=== PATIENT | female | born 1975 | race Caucasian/White ===

== ENCOUNTER 2020-02-25 19:01 | Observation (INO) | payer BC ==
[2020-02-25] MEDS ORDERED: SODIUM CHLORIDE 0.9% 1,000 ML IV STA (19:20)
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
[2020-02-25 19:45] LABS: Appearance,Urine Clear (Clear); Basophils # (A) 0.1 k/uL (0-0.2); Basophils % (A) 2 %; Bilirubin,Urine Negative (Negative); Blood,Urine Negative (Negative); Color,Urine Light Yellow; Eosinophils # (A) 0.1 k/uL (0-0.7); Eosinophils % (A) 2 %; Glucose,Urine (UA) Negative (Negative); HCT 47.6 % (34.0-46.0); HGB 15.3 gm/dL (11.4-16.0); Ketones,Urine Negative (Negative); Leukocyte Esterase,Urine Negative (Negative); Lymphocytes % (A) 25 %; MCH 32.1 pg (25.0-35.0); MCHC 32.1 g/dL (31.0-37.0); MCV 99.9 fL (80.0-100.0); Mean Platelet Volume 7.8; Monocytes # (A) 0.7 k/uL (0-1.0); Monocytes % (A) 8 %; Neutrophils # (A) 5.1 k/uL (1.3-7.7); Neutrophils % (A) 62 %; Nitrite,Urine Negative (Negative); Platelet Count 226 k/uL (150-450); Protein,Urine Negative (Negative); RBC 4.77 m/uL (3.80-5.40); RDW 12.5 % (11.5-15.5); Specific Gravity,Urine 1.008 (1.001-1.035); Urobilinogen,Urine <2.0 mg/dL (<2.0); WBC 8.2 k/uL (3.8-10.6)
[2020-02-25 20:01] LABS: ALT <6 U/L (4-34); AST 22 U/L (14-36); Acetaminophen <10.0 ug/mL; African American GFR (CKD) >90 (>60 ml/min/1.73 sqM); Albumin 4.2 g/dL (3.5-5.0); Alcohol <10 mg/dL; Alkaline Phosphatase 67 U/L (38-126); Anion Gap 6 mmol/L; Blood Urea Nitrogen 6 mg/dL (7-17); Calcium 9.3 mg/dL (8.4-10.2); Carbon Dioxide 26 mmol/L (22-30); Chloride 107 mmol/L (98-107); Glucose 86 mg/dL (74-99); Non-African American GFR(CKD) >90 (>60 ml/min/1.73 sqM); Potassium 4.4 mmol/L (3.5-5.1); Salicylate <1.0 mg/dL; Sodium 139 mmol/L (137-145); Total Bilirubin 0.5 mg/dL (0.2-1.3)
[2020-02-25 20:14] LABS: Amphetamine Screen,Urine Not Detected (NotDetected); Barbiturate Screen,Urine Not Detected (NotDetected); Benzodiazepines Screen,Urine Detected (NotDetected); Cocaine Screen,Urine Not Detected (NotDetected); Methadone Screen, Urine Not Detected (NotDetected); Opiate Screen,Urine Not Detected (NotDetected); Oxycodone Screen, Urine Not Detected (NotDetected); Phencyclidine Screen,Urine Not Detected (NotDetected); Tricyclic Antidepressant,Urine Not Detected (NotDetected); Urn Cannabinoid Scrn Detected (NotDetected)
[2020-02-25 20:28] LABS: VBG PH 7.36 (7.31-7.41)
[2020-02-25] MEDS ORDERED: ONDANSETRON 4 MG/2 ML VIAL IVP PRN (20:55)
[2020-02-25] MEDS ORDERED: NALOXONE 0.4 MG/ML 1 ML VIAL IV PRN (20:55)
[2020-02-25] MEDS ORDERED: ACETAMINOPHEN TAB 325 MG TAB PO PRN (20:55)
[2020-02-25] MEDS: SODIUM CHLORIDE 0.9% 1,000 ML IV SCH (21:26)
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
[2020-02-25] MEDS ORDERED: HALOPERIDOL LACTATE 5 MG/ML 1 ML VIAL IM PRN (22:07)
[2020-02-25] MEDS ORDERED: LORazepam 2 MG/ML INJ IV PRN (22:07)
[2020-02-26] MEDS ORDERED: HALOPERIDOL LACTATE 5 MG/ML 1 ML VIAL IM STA (00:05)
[2020-02-26] MEDS ORDERED: HALOPERIDOL LACTATE 5 MG/ML 1 ML VIAL IM PRN (00:06)
--- NOTE | 2020-02-26 00:08 | P.MHFACE ---
Face to Face Restrain/Seclus - Evaluation Patient's Immediate Situation: Endangers self safety, Endangers staff safety Patient's Reaction to the Intervention: Appropriate, Calm Patient's Medical & Behavioral Condition: Awake, Alert Need to Continue or Terminate Restraint or Seclusion: Continue Need to Continue or Terminate Restraint/Seclusion - Comment: The patient was noted to be very hostile towards staff. She was attempting to get out of the bed leave the hospital. She also threatened to hurt the staff if they got in her way. The patient was seen at the bedside. Informed the patient regarding the need for 2-point restraints for her safety. Continue with 2 point restraints for now.
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
[2020-02-26 04:43] VITALS: TEMP 98.7
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
[2020-02-26 09:01] VITALS: RESP 18
[2020-02-26 14:02] VITALS: BMI 18.6
[2020-02-26 17:01] VITALS: BP 124/74; PULSE 80
[2020-02-26] MEDS: SODIUM CHLORIDE 0.9% 1,000 ML IV SCH (17:40)
== END 2020-02-26 18:44 ==
LOC: EC 19:01 → 3SCARD 20:54
PROVIDERS: ADMIT Internal Medicine; ATTEND Internal Medicine
DX: T42.4X2A Poisoning by benzodiazepines, intentional self-harm, initial encounter (principal); F32.9 Major depressive disorder, single episode, unspecified; F41.9 Anxiety disorder, unspecified; Z78.1 Physical restraint status; Z72.0 Tobacco use; R53.83 Other fatigue; R45.1 Restlessness and agitation
CPT/HCPCS: 96372 ×2; 82075; 96360; 96361; 99285; 36415; 93005; 80053; 82803; 83735; 85025; 81003; 81025; 80306; 83520; 80329; 80320; G0378 ×2; J1630 ×2

== ENCOUNTER 2020-02-26 18:38 | Inpatient (IN) | payer BC ==
[2020-02-26] MEDS ORDERED: MAGNESIUM HYDROXIDE 2,400 MG/10 ML CUP PO PRN (18:58)
[2020-02-26] MEDS ORDERED: ACETAMINOPHEN TAB 325 MG TAB PO PRN (18:58)
[2020-02-26] MEDS ORDERED: LORazepam 0.5 MG TAB PO PRN (18:58)
[2020-02-26] MEDS ORDERED: ZIPRASIDONE 20 MG VIAL IM PRN (18:58)
[2020-02-26] MEDS ORDERED: MAG HYDROX/AL HYDROX/SIMETH 30 ML CUP PO PRN (18:58)
--- NOTE | 2020-02-27 04:35 | P.CONS ---
History of Present Illness - Reason for Consult Consult date: 02/27/20 - History of Present Illness Patient is a 45-year-old female with a PMH of tobacco abuse and depression was brought into the emergency room for attended suicide with Xanax. The patient was initially admitted to the medicine unit from where she was discharged on 02/25 and transferred to the mental health unit where she was seen and evaluated. The patient reported feeling well and notes that she is feeling back to her baseline. She denied any active complaints. Denied chest pain, shortness of breath, fever, chills, nausea, vomiting, abdominal pain, or diarrhea. Review of Systems Pertinent positives and negatives as discussed in HPI, a complete review of systems was performed and all other systems are negative. Past Medical History Past Medical History: Pneumonia Additional Past Medical History / Comment(s): PNEUMONIA 09/15/2013 TAKING RX SURGEON NOTIFIED PER PATIENT History of Any Multi-Drug Resistant Organisms: None Reported, MRSA Year Discovered:: Unknown MDRO Source:: Right knee Additional Past Surgical History / Comment(s): LAPAROSCOPIC Past Anesthesia/Blood Transfusion Reactions: No Reported Reaction Past Psychological History: Depression Smoking Status: Never smoker Past Alcohol Use History: Rare Past Drug Use History: None Reported - Past Family History Father Family Medical History: Cancer Medications and Allergies Allergies Allergy/AdvReac Type Severity Reaction Status Date / Time codeine Allergy Rash/Hives Verified 02/26/20 19:10 Physical Exam Vitals: Vital Signs Temp Pulse Resp BP 02/27/20 02:23 97.7 F 91 16 107/74 02/26/20 19:56 97.3 F L 81 20 124/89 Intake and Output 02/26/20 02/26/20 02/27/20 14:59 22:59 06:59 Other: Weight 51.965 kg General: non toxic, no distress, appears at stated age, normal weight Derm: no unusual rashes/lesions no unusual ecchymoses, warm, dry Head: atraumatic, normocephalic, symmetric Eyes: EOMI, no lid lag, anicteric sclera, pupils equal round reactive to light ENT: Nose and ears atraumatic, no thrush, no pharyngeal erythema Neck: No thyromegaly, no cervical lymphadenopathy, trachea midline, supple Mouth: no lip lesion, mucus membranes moist Cardiovascular: S1S2 reg, no murmur, positive posterior tibial pulse bilateral, no edema, capillary refill less than 2 seconds Lungs: CTA bilateral, no rhonchi, no rales , no accessory muscle use Abdominal: soft, nontender to palpation, no guarding, no appreciable organomegaly, normal bowel sounds Ext: no gross muscle atrophy, muscle strength 5 out of 5 in all 4 extremities grossly, no contractures, Neuro: CN II-XI grossly intact, light touch intact all 4 extremities, finger to nose within normal limits, Psych: Alert, oriented, appropriate affect Results Labs: Abnormal Lab Results - Last 24 Hours (Table) 02/25/20 Range/Units 19:32 LDL Cholesterol, Calc 112 H (0-99) mg/dL Assessment and Plan Plan: Xanax overdose -Patient back to her baseline -Continue to monitor for signs of withdrawal Depression with suicide attempt -As per psychiatry Tobacco abuse -Advised on importance of cessation -Nicotine patch when necessary Thank you for allowing us to participate in the care of this patient. We will follow peripherally. Do not hesitate to contact us with questions. Someone can be reached from the [facility] hospitalist group at all hours of the day at [phone].
[2020-02-27 10:16] LABS: Hemoglobin A1C 5.5 % (4.0-6.0)
[2020-02-27] MEDS: VENLAFAXINE HCL ER 37.5 MG CAP PO SCH (11:48)
--- NOTE | 2020-02-27 12:43 | P.HP ---
Psychiatric H&P - . H&P Date: 02/27/20 History & Physical: Allergies Allergy/AdvReac Type Severity Reaction Status Date / Time codeine Allergy Rash/Hives Verified 02/26/20 19:10 Vital Signs Temp 97.7 F 02/27/20 02:23 Pulse 91 02/27/20 02:23 Resp 16 02/27/20 02:23 BP 107/74 02/27/20 02:23 Pulse Ox Intake & Output 02/26/20 02/27/20 02/27/20 18:59 06:59 18:59 Weight 52.163 kg 51.965 kg Laboratory Last Values Estimated Ave Glu mg/dL 111 02/25/20 19:32 Hemoglobin A1c 5.5 % (4.0-6.0) 02/25/20 19:32 Triglycerides 80 mg/dL (<150) 02/25/20 19:32 Cholesterol 183 mg/dL (<200) 02/25/20 19:32 LDL Cholesterol, Calc 112 mg/dL (0-99) H 02/25/20 19:32 HDL Cholesterol 55 mg/dL (40-60) 02/25/20 19:32 TSH 2.580 mIU/L (0.465-4.680) 02/25/20 19:32 02/27/20 11:51 IDENTIFYING DATA: Patient is a 45-year-old female who currently lives with her 2 sons and a friend in the house and works for the [employer] service. HPI: Patient presented to the hospital initially after a legitimate suicide attempt overdosing on Xanax and apparentlyhad a noose wrapped around her neck. Patient was admitted to the medical floors initially and was noted to be agitat ed, threatening staff and violent towards staff members requiring restraints. Patient was admitted to the mental health floor on a petition and certificate the petition was filled out by patient's ex- who claims that after receiving a call from the patient's son about the suicide attempt and the overdose. Patient was seentodayand agreeable to be interviewed by parts data writer. Patient appeared to have a soft tone and mentioned that she was feeling depressed and suffering from increase in her anxiety over the past several months. She states that she did attempt suicide and put the noose around her neck and er son called 911 to bring her into the hospital. She states that previous to this she was in a argument with her boyfriend ann claims that it was over him not letting her go to his son's dirt bike competition because his ex- was going to be there and patient did not like this and went home and states that she was crying and felt hopeless and that's when she took a Xanaxonce to try to sleep however names that it was not helping her anxiety and she then overdosed on the pills. She states that she does not know what happened afterwards. She claims that currently she feels "depressed and frustrated and is endorsing guilt towards her actions. She states that she is worried about her job and kids. She states that she has fair sleep and fair appetite. Patient denies any suicidal or homicidal ideations intent or plan. At this time patient denies any auditory or visual hallucinations. Patient denies any flight of ideas racing thoughts and increased in goal directed behavior. Patient admits to using cigarettes daily and claims that she eats THC edibles approximately 10 mg every 2-3 times a week PAST PSYCHIATRIC HISTORY: Patient states that she has a history of depression and anxiety. she claims that she was previously on Xanax, and Lexapro in the past. [Patient denies any previous psychiatric hospitalizations.] she states that she does not have a psychiatrist as an outpatient however does have a counselor who she sees through [facility]. she claims that she did have a suicide attempt when she was 21 years old attempting to overdose. PMH:[denies] ALLERGIES: [as per EMR] CHEMICAL DEPENDENCY HISTORY: [as per HPI] FAMILY PSYCHIATRIC/SUBSTANCE USE HISTORY: [denies] SOCIAL HISTORY: Patient was born and raised in [place] [facility] and claims that she completed high school she states that she is not any legal history. She currently lives with her 2 sons a friend and lives in a house and works for the [employer]. MENTAL STATUS EXAM: General Appearance: Patient appears to be stated age is thin, alert, tearful and attempts to cooperate. Patient appears to have poor hygiene and grooming. Behavior: Patient is seated without any agitated behavior. tearful at times Speech: Patient's speech is [fluent and nonpressured.] Mood/Affect: Patient reports their mood is depressed, affect is congruent Suicidality/Homicidality: Patient denies having any homicidal ideation intent or plan. [Denies any suicidal ideations intent or plan] Perceptions: Patient denies any visual hallucinations [and denies any auditory hallucinations] Though content/process: There is no evidence of any delusional thought content and thought process is linear and goal-directed. minimizing her symptoms and suicide attempt. Memory and concentration: AOX3, grossly intact for the purposes of this session. Can spell "WORLD" backwards Judgment and insight: [poor] STRENGTHS/WEAKNESSES: strength is that patient is [resilient]. Weakness is that patient [has poor judgment and is impulsive] INTELLECT: [average] IMPRESSIONS: major depressive disorder, without psychotic features Anxiety disorder unspecified Benzodiazepine abuse Nicotine dependence PLAN: -Patient is admitted under involuntary status to MHU for stabilization of psychiatric symptoms and safety. Patient has signed medication consent and is placed in patient's chart. A second certification was completed and along with petition will be filed for court. -Medications : Will start patient on Effexor 37.5 mg daily for mood/anxiety. Melatonin 5 mg daily at bedtime when necessary for insomnia. -Ativan and Geodon PRN for agitation/aggression -Patient was informed of the risks, benefits and side effects of the medication and patient verbally consented to taking the medications. Patient signed med consent form and was placed in chart. -Internal Medicine consult to perform medical evaluation and physical. -NRT - nicotine patch -SW on board for discharge planning. Encourage patient to participate in groups to work on coping skills. 02/27/20 12:35
[2020-02-27 15:56] VITALS: BMI 18.4
[2020-02-27] MEDS ORDERED: MELATONIN 5 MG TABLET PO PRN (21:00)
[2020-02-28] MEDS: VENLAFAXINE HCL ER 37.5 MG CAP PO SCH (08:04)
--- NOTE | 2020-02-28 10:25 | P.PN ---
Progress Note - Text Progress Note Date: 02/28/20 Interval History: Patient was seen sitting by the nurse's desk this morning and was directable and agreeable to speak with keno writer/runner in the office. Patient appeared mildly improved hygiene and grooming today. She appeared to be calmer with keno writer/runner. She states that she is feeling anxious on the unit around other patients however does state that her mood has been improving with the Effexor. Patient was agreeable to have the Effexor dose increased to 75 for tomorrow. She claims that she was ab le to speak to her boyfriend and her children over the phone yesterday and claims that she misses them. She states that 2 of them will come to visit her tonight for visiting hours. She states that she is attempting to work on her coping skills group. She claims that she was not able to sleep well last night due to her roommate being on a one-to-one and talking throughout the night. She states that she has a fair appetite. At this time patient denies any suicidal or homical ideations, intent or plan. Patient denies any auditory, visual hallucinations and denies any paranoia or delusions. Patient denies any side effects from the medications and has been compliant with meds. Mental Status Exam: General Appearance: Patient appears to be stated age is thin, alert, tearful and attempts to cooperate. Patient appears to have improving hygiene and grooming. Behavior: Patient is seated without any agitated behavior. Speech: Patient's speech is fluent and nonpressured. Mood/Affect: Patient reports their mood is depressed, affect is congruent Suicidality/Homicidality: Patient denies having any homicidal ideation intent or plan. Denies any suicidal ideations intent or plan Perceptions: Patient denies any visual hallucinations and denies any auditory hallucinations Though content/process: There is no evidence of any delusional thought content and thought process is linear and goal-directed. Focused on discharge. Memory and concentration: AOX3, grossly intact for the purposes of this session Judgment and insight: Improving mildly Assessment major depressive disorder, without psychotic features Anxiety disorder unspecified Benzodiazepine abuse Nicotine dependence Plan: -Patient continues to meet criteria for inpatient psychiatric admission for symptom stabilization and safety. We will await deferral date. -Medications: Increased Effexor XRT 75 mg daily for mood/anxiety. Continue with melatonin 5 mg daily at bedtime when necessary for insomnia. -When necessary Ativan and Geodon for agitation/aggression. -NRT - nicotine patch -SW on board for discharge planning. Encouraged the patient to participate in milieu. Encourage patient to work on her coping skills and distress tolerance. If patient does well overnight, we will likely plan for potential discharge tomorrow if patient defers court.
[2020-02-29 07:02] VITALS: BP 117/82; PULSE 93; RESP 14; TEMP 97.9
[2020-02-29] MEDS ORDERED: VENLAFAXINE HCL ER 75 MG CAP PO SCH (09:00)
--- NOTE | 2020-02-29 10:08 | P.DS ---
Providers Date of admission: 02/26/20 18:49 Expected date of discharge: 02/29/20 Attending physician: Burke Serrano MD Consults: 02/26/20 18:58 Consult Physician Routine Consulting Provider: Shun Chung Consult Reason/Comments: H&P and medical Do you want consulting provider notified?: Yes Primary care physician: Burke Serrano MD - Discharge Diagnosis(es) (1) Major depressive disorder without psychotic features Current Visit: Yes Status: Acute Priority: High (2) Anxiety disorder Current Visit: Yes Status: Acute Priority: Medium (3) Benzodiazepine abuse Current Visit: Yes Status: Acute Priority: Medium (4) Nicotine dependence Current Visit: Yes Status: Acute Priority: Low Hospital Course: Admission HPI: Patient is a 45-year-old female who currently lives with her 2 sons and a friend in the house and works for the [employer] service. Patient presented to the hospital initially after a legitimate suicide attempt overdosing on Xanax and apparentlyhad a noose wrapped around her neck. Patient was admitted to the medical floors initially and was noted to be agitated, threatening staff and violent towards staff members requiring restraints. Patient was admitted to the mental health floor on a petition and certificate the petition was filled out by patient's ex- who claims that after receiving a call from the patient's son about the suicide attempt and the overdose. Patient was seentodayand agreeable to be interviewed by administrative underwriter. Patient appeared to have a soft tone and mentioned that she was feeling depressed and suffering from increase in her anxiety over the past several months. She states that she did attempt suicide and put the noose around her neck and er son called 911 to bring her into the hospital. She states that previous to this she was in a argument with her boyfriend andshe claims that it was over him not letting her go to his son's dirt bike competition because his ex- was going to be there and patient did not like this and went home and states that she was crying and felt hopeless and that's when she took a Xanaxonce to try to sleep however names that it was not helping her anxiety and she then overdosed on the pills. She states that she does not know what happened afterwards. She claims that currently she feels "depressed and frustrated and is endorsing guilt towards her actions. She states that she is worried about her job and kids. She states that she has fair sleep and fair appetite. Patient denies any suicidal or homicidal ideations intent or plan. At this time patient denies any auditory or visual hallucinations. Patient denies any flight of ideas racing thoughts and increased in goal directed behavior. Patient admits to using cigarettes daily and claims that she eats THC edibles approximately 10 mg every 2-3 times a week Hospital course: Upon admission to the unit patient was initially depressed and anxious. Patient was however directable and agreeable to commence treatment. Patient got along well with other patients on the unit and followed unit protocol. Patient was compliant with the medications and denied any side effects throughout hospital course. Patient was started on Effexor and titrated up to dose of 75 mg daily for mood/anxiety. Also administrative underwriter spoke with patient about the side effects and dangers of abusing medication such as Xanax, patient verbally understood and agreed. Patient spoke of her stressors and engaged in therapy both group and individual. Patient was also seen by medical team for history and physical exam. Throughout the course of the hospitalization patient gradually improved with regards to mood, anxiety, sleep and became future oriented with improved insight and judgment. On the day of discharge patient denied any suicidal or homicidal ideations intent or plan denied any auditory or visual hallucinations. Patient endorsed wanting to live for her family and health. The patient denied any access to guns or weapons. Patient denied any paranoia and did not endorse any delusions. Patient does have a significant history of substance abuse and was counseled on abstaining from all substances including alcohol and marijuana. Patient was also counseled on the medications and need for regular compliance and was encouraged to follow-up with their outpatient appointment for mental health and also for primary care. Prior to discharge a family meeting will be arranged by social media senior associate to answer any questions and ensure safety upon discharge. Mental status exam: General Appearance: Patient appears to be thin, stated age is alert, pleasant, and cooperative. Patient is in no acute distress and has improved hygiene and grooming Behavior: Patient is calmly seated without any agitated behavior. Speech: Patient's speech is fluent and nonpressured. Mood/Affect: Patient reports their mood is "better", affect is congruent and euthymic. Suicidality/Homicidality: Patient denies having any suicidal or homicidal ideation intent or plan. Perceptions: Patient denies any auditory or visual hallucinations. Though content/process: There is no evidence of any delusional thought content and thought process is linear and goal-directed. more future oriented Memory and concentration: AOX3, grossly intact for the purposes of this session. Can spell "WORLD" backwards correctly. Judgment and insight: improved with guarded prognosis Impression: major depressive disorder, without psychotic features Anxiety disorder unspecified Benzodiazepine abuse Nicotine dependence Plan: -Continue with discharge today as patient has improved and stabilized psychiatrically and is not currently an imminent threat to herself and/or others. Patient will remain at chronically elevated risk for harm to self and/or others due to her impulsivity and substance abuse. -Continue medications: effexor XR 75mg daily for mood/anxiety. Patient was also advised to take melatonin prn for sleep. -Patient was counseled on the need for medication compliance and appropriate follow-up at mental health and also primary care for medical issues. Patient verbalized understanding and agreed. -Social work to arrange for and conduct family meeting to ensure safety upon discharge and answer any questions/concerns. Social work also to arrange for patients follow up appointments for psychiatric care along with follow up with primary care provider. -Patient counseled on abstaining from recreational drugs and marijuana and alcohol. Was informed/educated on the adverse effects on their physical and mental health. Patient verbally agreed and understood]. [Patient wanted to cut back on her substance abuse herself at this time. -Patient was instructed to return to the hospital or seek immediate medical care if their psychiatric or medical symptoms do worsen or reoccur. Allergies Allergy/AdvReac Type Severity Reaction Status Date / Time codeine Allergy Rash/Hives Verified 02/26/20 19:[address] Glu mg/dL 111 02/25/20 19:32 Hemoglobin A1c 5.5 % (4.0-6.0) 02/25/20 19:32 Triglycerides 80 mg/dL (<150) 02/25/20 19:32 Cholesterol 183 mg/dL (<200) 02/25/20 19:32 LDL Cholesterol, Calc 112 mg/dL (0-99) H 02/25/20 19:32 HDL Cholesterol 55 mg/dL (40-60) 02/25/20 19:32 TSH 2.580 mIU/L (0.465-4.680) 02/25/20 19:32 Vital Signs Temp 97.9 F 02/29/20 07:02 Pulse 93 02/29/20 07:02 Resp 14 02/29/20 07:02 BP 117/82 02/29/20 07:02 Pulse Ox 100 02/28/20 06:18 Patient Condition at Discharge: Stable Plan - Discharge Summary New Discharge Prescriptions: New Venlafaxine HCl ER [Effexor XR] 75 mg PO DAILY 30 Days cap.er.24h Melatonin 5 mg PO HS PRN tablet PRN Reason: Insomnia Acetaminophen Tab [Tylenol] 650 mg PO Q4HR PRN tab PRN Reason: Pain/Discomfort Discontinued Metaxalone 800 mg PO TID PRN PRN Reason: Spasms Escitalopram [Lexapro] 20 mg PO DAILY Cyclobenzaprine [Flexeril] 10 mg PO TID PRN PRN Reason: Spasms ALPRAZolam [Xanax] 0.5 mg PO TID PRN PRN Reason: Anxiety Discharge Medication List Acetaminophen Tab [Tylenol] 650 mg PO Q4HR PRN tab 02/29/20 [Rx] Melatonin 5 mg PO HS PRN tablet 02/29/20 [Rx] Venlafaxine HCl ER [Effexor XR] 75 mg PO DAILY 30 Days cap.er.24h 02/29/20 [Rx] Follow up Appointment(s)/Referral(s): intake,intake [Other] - 03/07/20 7:30 am [facility] [NON-STAFF] - 1 Week Patient Instructions/Handouts: Depression (DC), Anxiety (GEN), Suicide Prevention (DC) Activity/Diet/Wound Care/Special Instructions: Activity and diet as tolerated. Avoid the use of street drugs and alcohol. Take all medications as prescribed. When you are in need of refills on your medications please contact your medical provider and/or outpatient psychiatrist to have this done. Please go to scheduled outpatient appointment for aftercare treatment. If symptoms return or become worse, call the crisis line at and/or go to the nearest emergency room for evaluation. Discharge Disposition: HOME SELF-CARE
== END 2020-02-29 10:25 | disposition home or self-care (01) | DRG 881 ==
LOC: 3MHU 18:49
PROVIDERS: ADMIT Psychiatry & Neurology Psychiatry; ATTEND Psychiatry & Neurology Psychiatry
DX: F32.9 Major depressive disorder, single episode, unspecified (principal); F41.9 Anxiety disorder, unspecified; F13.10 Sedative, hypnotic or anxiolytic abuse, uncomplicated; F17.210 Nicotine dependence, cigarettes, uncomplicated; R45.87 Impulsiveness; Z87.01 Personal history of pneumonia (recurrent); Z86.14 Personal history of Methicillin resistant Staphylococcus aureus infection; Z91.5 Personal history of self-harm; Z88.5 Allergy status to narcotic agent; Z80.9 Family history of malignant neoplasm, unspecified
CPT/HCPCS: 36415; 80053; 80061; 80306; 80320; 80329; 81003; 81025; 82075; 82803; 83036; 83520; 83735; 84443; 85025; 93005; 96360; 96361; 96372; 99285

== ENCOUNTER 2023-05-15 16:10 | Emergency (ER) | payer BC ==
[2023-05-15 16:21] VITALS: TEMP 97.7
--- NOTE | 2023-05-15 17:12 | XR ---
EXAMINATION TYPE: XR chest 2V DATE OF EXAM: 05/15/2023 4:54 PM CLINICAL INDICATION:Female, 48 years old with history of difficulty breathing; [facility] COMPARISON: None TECHNIQUE: XR chest 2V Frontal and lateral views of the chest. FINDINGS: Lungs/Pleura: There is no evidence of pleural effusion, focal consolidation, or pneumothorax. Pulmonary vascularity: Unremarkable. Heart/mediastinum: Cardiomediastinal silhouette is unremarkable. Musculoskeletal: No acute osseous pathology. IMPRESSION: No acute cardiopulmonary disease/process.
[2023-05-15 17:30] LABS: Basophils % (A) 0 %; Eosinophils % (A) 0 %; HCT 42.3 % (34.0-46.0); HGB 14.1 gm/dL (11.4-16.0); Lymphocytes # (A) 1.2 k/uL (1.0-4.8); Lymphocytes % (A) 12 %; MCH 32.5 pg (25.0-35.0); MCHC 33.4 g/dL (31.0-37.0); MCV 97.3 fL (80.0-100.0); Mean Platelet Volume 8.3; Monocytes # (A) 0.3 k/uL (0-1.0); Monocytes % (A) 3 %; Neutrophils # (A) 8.4 k/uL (1.3-7.7); Neutrophils % (A) 84 %; Platelet Count 268 k/uL (150-450); RBC 4.34 m/uL (3.80-5.40); RDW 12.4 % (11.5-15.5); WBC 10.1 k/uL (3.8-10.6)
[2023-05-15 17:31] LABS: ALT 10 U/L (4-34); AST 22 U/L (14-36); African American GFR (CKD) >90 (>60 ml/min/1.73 sqM); Albumin 4.5 g/dL (3.5-5.0); Alkaline Phosphatase 88 U/L (38-126); Anion Gap 11 mmol/L; Blood Urea Nitrogen 7 mg/dL (7-17); Calcium 9.5 mg/dL (8.4-10.2); Carbon Dioxide 25 mmol/L (22-30); Chloride 102 mmol/L (98-107); Glucose 105 mg/dL (74-99); Non-African American GFR(CKD) >90 (>60 ml/min/1.73 sqM); Potassium 3.7 mmol/L (3.5-5.1); Sodium 138 mmol/L (137-145); Total Bilirubin 0.4 mg/dL (0.2-1.3); Total Protein 7.7 g/dL (6.3-8.2)
[2023-05-15 17:35] LABS: Partial Thromboplastin Time 24.4 sec (22.0-30.0); Prothrombin Time 10.6 sec (10.0-12.5)
[2023-05-15 17:39] LABS: NT-Pro-B-Type Natriuretic Pept 30 pg/mL
[2023-05-15] MEDS ORDERED: CYCLOBENZAPRINE 10MG STARTER 3 TAB BTL PO STA (18:10)
--- NOTE | 2023-05-15 18:14 | ED ---
SOB HPI - General Chief Complaint: Shortness of Breath Stated Complaint: SOB Time Seen by Provider: 05/15/23 16:15 Source: patient, EMS Mode of arrival: EMS Limitations: no limitations - History of Present Illness Initial Comments: 48-year-old female presents the emergency department with shortness of breath. States that she was cleaning her bathroom and accidentally mixed two chemicals together. She began breathing and the fumes and went into sudden respiratory distress. She has no history of asthma or COPD. EMS was immediately called. She was placed on CPAP due to her work of breathing. EMS administered a DuoNeb breathing treatment. Patient admits to vaping. She denies any chest pain. No history of cardiac disease. No other alleviating, precipitating or modifying factors - Related Data Previous Rx's Medication Instructions Recorded Acetaminophen Tab [Tylenol] 650 mg PO Q4HR PRN tab 02/29/20 Melatonin 5 mg PO HS PRN tablet 02/29/20 Venlafaxine HCl ER [Effexor XR] 75 mg PO DAILY 30 Days cap.er.24h 02/29/20 Albuterol Inhaler [Ventolin Hfa 2 puff INHALATION QID #8 gm 05/15/23 Inhaler] Allergies Allergy/AdvReac Type Severity Reaction Status Date / Time codeine Allergy Rash/Hives Verified 05/15/23 16:20 Review of Systems ROS Statement: Those systems with pertinent positive or pertinent negative responses have been documented in the HPI. ROS Other: All systems not noted in ROS Statement are negative. Past Medical History Past Medical History: Pneumonia Additional Past Medical History / Comment(s): PNEUMONIA 09/15/2013 TAKING RX SURGEON NOTIFIED PER PATIENT History of Any Multi-Drug Resistant Organisms: None Reported, MRSA Date of last positivie culture/infection: Unknown MDRO Source:: Right knee Additional Past Surgical History / Comment(s): LAPAROSCOPIC Past Anesthesia/Blood Transfusion Reactions: No Reported Reaction Past Psychological History: Depression Smoking Status: Vaper Past Alcohol Use History: Rare Past Drug Use History: None Reported - Past Family History Father Family Medical History: Cancer General Exam Limitations: no limitations General appearance: alert, in no apparent distress Head exam: Present: atraumatic, normocephalic, normal inspection Eye exam: Present: normal appearance, PERRL, EOMI. Absent: scleral icterus, conjunctival injection, periorbital swelling ENT exam: Present: normal exam, mucous membranes moist Neck exam: Present: normal inspection. Absent: tenderness, meningismus, lymphadenopathy Respiratory exam: Present: normal lung sounds bilaterally, other (Tachypnea). Absent: respiratory distress, wheezes, rales, rhonchi, stridor Cardiovascular Exam: Present: regular rate, normal rhythm, normal heart sounds. Absent: systolic murmur, diastolic murmur, rubs, gallop, clicks GI/Abdominal exam: Present: soft, normal bowel sounds. Absent: distended, tenderness, guarding, rebound, rigid Extremities exam: Present: normal inspection, full ROM, normal capillary refill. Absent: tenderness, pedal edema, joint swelling, calf tenderness Back exam: Present: normal inspection Neurological exam: Present: alert, oriented X3, CN II-XII intact Psychiatric exam: Present: normal affect, normal mood Skin exam: Present: warm, dry, intact, normal color. Absent: rash Course Vital Signs 05/15/23 05/15/23 05/15/23 16:12 16:30 17:00 Temperature 97.7 F Pulse Rate 92 90 82 Respiratory 26 H 24 20 Rate Blood Pressure 139/93 139/93 124/91 O2 Sat by Pulse 100 100 100 Oximetry 05/15/23 05/15/23 05/15/23 17:30 18:00 18:26 Temperature Pulse Rate 81 76 Respiratory 20 20 18 Rate Blood Pressure 118/88 112/77 117/87 O2 Sat by Pulse 100 97 97 Oximetry Medical Decision Making - Medical Decision Making Was pt. sent in by a medical professional or institution (, PA, LAND SURVEYOR MANAGER, urgent care, hospital, or usp...) When possible be specific @ -No Did you speak to anyone other than the patient for history (EMS, parent, family, police, friend...)? What history was obtained from this source @ -EMS Did you review nursing and triage notes (agree or disagree)? Why? @ -I reviewed and agree with nursing and triage notes Were old charts reviewed (outside hosp., previous admission, EMS record, old EKG, old radiological studies, urgent care reports/EKG's, usp records)? Report findings @ -No old charts were reviewed Differential Diagnosis (chest pain, altered mental status, abdominal pain women, abdominal pain men, vaginal bleeding, weakness, fever, dyspnea, syncope, headache, dizziness, GI bleed, back pain, seizure, CVA, palpatations, mental health, musculoskeletal)? @ -Differential Dyspnea: Coronary syndrome, arrhythmia, tamponade, asthma, COPD, pulmonary embolism, pneumonia, pneumothorax, pulmonary effusion, anaphylaxis, diabetic ketoacidosis, flailed chest, pulmonary contusion, diaphragmatic rupture, anemia, neuromuscular, this is not meant to be an all-inclusive list. EKG interpreted by me (3pts min.). @ -Yes and demonstrates sinus rhythm with a rate of 83. OR interval 135. QRS 87. QTC of 418. No acute ST segment elevations or depressions X-rays interpreted by me (1pt min.). @ -Yes and demonstrates no acute process CT interpreted by me (1pt min.). @ -None done U/S interpreted by me (1pt. min.). @ -None done What testing was considered but not performed or refused? (CT, X-rays, U/S, labs)? Why? @ -None What meds were considered but not given or refused? Why? @ -None Did you discuss the management of the patient with other professionals (professionals i.e. , PA, LAND SURVEYOR MANAGER, lab, RT, psych nurse, social work case manager, closing specialist, teacher, chief compliance officer, social work case manager)? Give summary @ -No Was smoking cessation discussed for >3mins.? @ -No Was critical care preformed (if so, how long)? @ -No Were there social determinants of health that impacted care today? How? (Homelessness, low income, unemployed, alcoholism, drug addiction, transportation, low edu. Level, literacy, decrease access to med. care, [facility], rehab)? @ -No Was there de-escalation of care discussed even if they declined (Discuss DNR or withdrawal of care, Hospice)? DNR status @ -No What co-morbidities impacted this encounter? (DM, HTN, Smoking, COPD, CAD, Cancer, CVA, ARF, Chemo, Hep., AIDS, mental health diagnosis, sleep apnea, morbid obesity)? @ -None Was patient admitted / discharged? Hospital course, mention meds given and route, prescriptions, significant lab abnormalities, going to OR and other pertinent info. @ -Discharged. Upon arrival patient placed into room 7. Thorough history and physical exam was performed. Patient is removed from CPAP and placed on 6 L of oxygen which is slowly titrated down. She had been given a dose of steroids by EMS. Chest x-ray was performed which demonstrates no acute process. Patient was observed in the emergency department for several hours with improvement in her respiratory status. She is removed from oxygen and continues to have no increased work of breathing. Patient will be discharged home at this time an albuterol inhaler. Instructed to use for any shortness of breath. Follow up with her doctor and return for any new or worsening symptoms. Patient agreeable with plan and was discharged in stable condition Undiagnosed new problem with uncertain prognosis? @ -No Drug Therapy requiring intensive monitoring for toxicity (Heparin, Nitro, Insulin, Cardizem)? @ -No Were any procedures done? @ -No Diagnosis/symptom? @ -acute chemical inhalation exposure, acute bronchospasm Acute, or Chronic, or Acute on Chronic? @ -acute Uncomplicated (without systemic symptoms) or Complicated (systemic symptoms)? @ -complicated Side effects of treatment? @ -No Exacerbation, Progression, or Severe Exacerbation? @ -No Poses a threat to life or bodily function? How? (Chest pain, [place], [place], pneumonia, PE, COPD, DKA, ARF, appy, cholecystitis, CVA, Diverticulitis, Homicidal, Suicidal, threat to staff... and all critical care pts) @ -No - Lab Data Result diagrams: 05/15/23 17:06 05/15/23 17:06 Lab Results 05/15/23 05/15/23 05/15/23 Range/Units 17:06 17:06 17:06 WBC 10.1 (3.8-10.6) k/uL RBC 4.34 (3.80-5.40) m/uL Hgb 14.1 (11.4-16.0) gm/dL Hct 42.3 (34.0-46.0) % MCV 97.3 (80.0-100.0) fL MCH 32.5 (25.0-35.0) pg MCHC 33.4 (31.0-37.0) g/dL RDW 12.4 (11.5-15.5) % Plt Count 268 (150-450) k/uL MPV 8.3 Neutrophils % 84 % Lymphocytes % 12 % Monocytes % 3 % Eosinophils % 0 % Basophils % 0 % Neutrophils # 8.4 H (1.3-7.7) k/uL Lymphocytes # 1.2 (1.0-4.8) k/uL Monocytes # 0.3 (0-1.0) k/uL Eosinophils # 0.0 (0-0.7) k/uL Basophils # 0.0 (0-0.2) k/uL PT 10.6 (10.0-12.5) sec INR 1.0 (<1.2) APTT 24.4 (22.0-30.0) sec Sodium 138 (137-145) mmol/L Potassium 3.7 (3.5-5.1) mmol/L Chloride 102 (98-107) mmol/L Carbon Dioxide 25 (22-30) mmol/L Anion Gap 11 mmol/L BUN 7 (7-17) mg/dL Creatinine 0.63 (0.52-1.04) mg/dL Est GFR (CKD-EPI)AfAm >90 (>60 ml/min/1.73 sqM) Est GFR (CKD-EPI)NonAf >90 (>60 ml/min/1.73 sqM) Glucose 105 H (74-99) mg/dL Plasma Lactic Acid David (0.7-2.0) mmol/L Calcium 9.5 (8.4-10.2) mg/dL Total Bilirubin 0.4 (0.2-1.3) mg/dL AST 22 (14-36) U/L ALT 10 (4-34) U/L Alkaline Phosphatase 88 (38-126) U/L Troponin I (0.000-0.034) ng/mL NT-Pro-B Natriuret Pep 30 pg/mL Total Protein 7.7 (6.3-8.2) g/dL Albumin 4.5 (3.5-5.0) g/dL 05/15/23 05/15/23 Range/Units 17:06 17:06 WBC (3.8-10.6) k/uL RBC (3.80-5.40) m/uL Hgb (11.4-16.0) gm/dL Hct (34.0-46.0) % MCV (80.0-100.0) fL MCH (25.0-35.0) pg MCHC (31.0-37.0) g/dL RDW (11.5-15.5) % Plt Count (150-450) k/uL MPV Neutrophils % % Lymphocytes % % Monocytes % % Eosinophils % % Basophils % % Neutrophils # (1.3-7.7) k/uL Lymphocytes # (1.0-4.8) k/uL Monocytes # (0-1.0) k/uL Eosinophils # (0-0.7) k/uL Basophils # (0-0.2) k/uL PT (10.0-12.5) sec INR (<1.2) APTT (22.0-30.0) sec Sodium (137-145) mmol/L Potassium (3.5-5.1) mmol/L Chloride (98-107) mmol/L Carbon Dioxide (22-30) mmol/L Anion Gap mmol/L BUN (7-17) mg/dL Creatinine (0.52-1.04) mg/dL Est GFR (CKD-EPI)AfAm (>60 ml/min/1.73 sqM) Est GFR (CKD-EPI)NonAf (>60 ml/min/1.73 sqM) Glucose (74-99) mg/dL Plasma Lactic Acid David 1.9 (0.7-2.0) mmol/L Calcium (8.4-10.2) mg/dL Total Bilirubin (0.2-1.3) mg/dL AST (14-36) U/L ALT (4-34) U/L Alkaline Phosphatase (38-126) U/L Troponin I <0.012 (0.000-0.034) ng/mL NT-Pro-B Natriuret Pep pg/mL Total Protein (6.3-8.2) g/dL Albumin (3.5-5.0) g/dL Disposition Clinical Impression: Inhalation of cleaning agent Disposition: HOME SELF-CARE Condition: Stable Instructions (If sedation given, give patient instructions): Bronchospasm (ED) Additional Instructions: Use the inhaler as needed. Follow-up with your doctor and return for any new or worsening symptoms Prescriptions: Albuterol Inhaler [Ventolin Hfa Inhaler] 2 puff INHALATION QID #8 gm Is patient prescribed a controlled substance at d/c from ED?: No Referrals: Chaz Cowan MD [Primary Care Provider] - 1-2 days Time of Disposition: 18:13
[2023-05-15 18:30] VITALS: BP 117/87; PULSE 76; RESP 18
== END 2023-05-15 18:27 | disposition home or self-care (01) ==
LOC: EC 16:10
DX: T55.1X1A Toxic effect of detergents, accidental (unintentional), initial encounter (principal); F32.A Depression, unspecified; F17.290 Nicotine dependence, other tobacco product, uncomplicated; Z79.899 Other long term (current) drug therapy; Z88.5 Allergy status to narcotic agent
CPT/HCPCS: 36415; 71046; 80053; 83605; 83880; 84484; 85025; 85610; 85730; 93005; 99285